=== PATIENT | female | born 1950 | race Caucasian/White ===

== ENCOUNTER 2017-04-17 12:33 | Emergency (ER) | payer MEDICARE, MEDICAID ==
[~2017-04-17] VITALS: Ht 154.9 cm; Wt 68.9 kg
[2017-04-17] MEDS ORDERED: VANCOMYCIN IV 1,000 MG in IV DEXTROSE 5% 250 ML IV ONE (13:00)
[2017-04-17] MEDS ORDERED: VANCOMYCIN IV 200 ML ONE (13:15)
[2017-04-17 13:16] LABS: BASOPHILS % (AUTO) 0.3 % (0.0-2.0); EOSINOPHILS # (AUTO) 0.1 K/uL (0.0-0.7); EOSINOPHILS % (AUTO) 0.8 % (0.0-7.0); HEMATOCRIT 43.4 % (31.2-41.9); HEMOGLOBIN 14.8 g/dL (10.9-14.3); LYMPHOCYTES # (AUTO) 1.9 K/uL (20.0-40.0); LYMPHOCYTES % (AUTO) 20.9 % (20.5-51.5); MEAN CORPUSCULAR HEMOGLOBIN 27.4 uug (24.7-32.8); MEAN CORPUSCULAR HGB CONC 34 g/dL (32.3-35.6); MEAN CORPUSCULAR VOLUME 80.5 fL (75.5-95.3); MONOCYTES # (AUTO) 0.6 K/uL (2.0-10.0); MONOCYTES % (AUTO) 6.5 % (0.0-11.0); NEUTROPHILS # (AUTO) 6.6 K/uL (1.8-8.9); NEUTROPHILS % (AUTO) 71.5 % (38.5-71.5); PLATELET COUNT (AUTO) 259 K/uL (179-408); RED BLOOD CELL COUNT(AUTO) 5.39 MIL/uL (3.63-4.92); WHITE BLOOD COUNT (AUTO) 9.2 K/uL (3.8-11.8)
[2017-04-17 13:31] LABS: BILIRUBIN,DIRECT 0.1 mg/dL (0.0-0.2); BILIRUBIN,TOTAL 0.7 mg/dL (0.2-1.0); CREATININE 0.7 mg/dL (0.6-1.3); POTASSIUM 3.9 mmol/L (3.5-5.1); TOTAL PROTEIN, SERUM 8.7 g/dL (6.4-8.2)
--- NOTE | 2017-04-17 14:10 | NUR ---
[facility] PROVIDED FOR PT PER REQUEST
[2017-04-17] MEDS ORDERED: NEOMY/BACITRA/POLYMYXIN B OINT UD PACKET TP ONE (14:45)
[2017-04-17] MEDS ORDERED: METRONIDAZOLE 500 MG/NS 100ML 100 ML IV ONE (14:51)
[2017-04-17] MEDS ORDERED: METRONIDAZOLE 500 MG/NS 100 ML PIGGYBACK IV ONE (15:00)
--- NOTE | 2017-04-17 15:43 | NUR ---
Patient discharged to home in stable conditon. Written and verbal after care instructions given. Patient verbalizes understanding of instructions. PT WALKS IN STEADY GAIT. PT DENEIS ANY COMPLAIN AT THIS TIME. PT WITH SON
[2017-04-17 15:45] VITALS: BP 108/71
== END 2017-04-17 15:46 | disposition home or self-care (01) ==
LOC: ER 12:33
DX: L03.211 Cellulitis of face (principal)
CPT/HCPCS: 36415; 70486; 80048; 80076; 85025; 96365; 96366; 96367; 99285; A4663; J3370; J3490

== ENCOUNTER 2021-01-03 17:55 | Emergency (ER) | payer MEDICAID, MEDICARE, OTHER ==
--- NOTE | 2021-01-03 20:00 | NUR ---
Patient was called to be triaged but was not present in the waiting deepa.
--- NOTE | 2021-01-03 20:30 | NUR ---
Patient was called to be triaged but was not present. Patient was not triaged or seen by ERMD.
== END 2021-01-03 20:30 | disposition left against medical advice (07) ==
LOC: ER 17:58
DX: Z53.21 Procedure and treatment not carried out due to patient leaving prior to being seen by health care provider (principal)

== ENCOUNTER 2021-01-04 13:47 | Emergency (ER) | payer OTHER ==
[~2021-01-04] VITALS: Ht 152.4 cm; Wt 65.8 kg
--- NOTE | 2021-01-04 13:54 | NUR ---
Pt was triaged and placed back in ER waiting room as the ER is full and there are no ER beds available at this time.
[2021-01-04 15:44] LABS: HEMATOCRIT 41.2 % (31.2-41.9); MEAN CORPUSCULAR HEMOGLOBIN 27.3 uug (24.7-32.8); MEAN CORPUSCULAR VOLUME 81.1 fL (75.5-95.3); PLATELET COUNT (AUTO) 302 K/uL (179-408)
[2021-01-04 15:54] LABS: CREATININE 0.8 mg/dL (0.6-1.3); POTASSIUM 3.9 mmol/L (3.5-5.1)
[2021-01-04 15:57] LABS: BILIRUBIN,DIRECT 0.1 mg/dL (0.0-0.2); BILIRUBIN,TOTAL 0.3 mg/dL (0.2-1.0); TOTAL PROTEIN, SERUM 8.8 g/dL (6.4-8.2)
--- NOTE | 2021-01-04 16:12 | NUR ---
ER MD REDUCED THE PROLAPSED BLADDER BACK INSIDE WITHOUT DIFFICULTY. PT TOLERATED WELL.
[2021-01-04] MEDS: PIPERACILLIN SODIUM/TAZOBACTAM 3.375 G in IV DEXTROSE 5% 50 ML IV ONE (16:34)
[2021-01-04] MEDS ORDERED: PIPERACILLIN/TAZOBACTAM/D5W 50 ML IV ONE (16:43)
--- NOTE | 2021-01-04 20:15 | NUR ---
IV removed. Catheter intact and site benign. Pressure and 4x4 gauze applied to site. No bleeding noted.
--- NOTE | 2021-01-04 20:20 | NUR ---
Patient discharged to home in stable condition. Written and verbal after care instructions given. Patient verbalizes understanding of instructions. Stressed follow up or return to ER for worsening s/s.
[2021-01-04 20:23] VITALS: BP 132/82
== END 2021-01-04 20:24 | disposition home or self-care (01) ==
LOC: ER 13:47
DX: N81.10 Cystocele, unspecified (principal); Z90.710 Acquired absence of both cervix and uterus; Z20.822 Contact with and (suspected) exposure to COVID-19; Z53.29 Procedure and treatment not carried out because of patient's decision for other reasons
CPT/HCPCS: 36415; 71045; 76856; 80048; 80076; 85025; 85730; 86850; 86900; 86901; 87426; 96365; 99284; J2543; A4663

== ENCOUNTER 2022-07-12 15:19 | Emergency (ER) | payer OTHER ==
[~2022-07-12] VITALS: Ht 152.4 cm; Wt 65.8 kg
--- NOTE | 2022-07-12 15:42 | NUR ---
seen and examined by
[2022-07-12 15:53] LABS: HEMATOCRIT 40.6 % (31.2-41.9); MEAN CORPUSCULAR HEMOGLOBIN 26.3 uug (24.7-32.8); MEAN CORPUSCULAR VOLUME 81.1 fL (75.5-95.3); PLATELET COUNT (AUTO) 255 K/uL (179-408)
--- NOTE | 2022-07-12 16:19 | NUR ---
xray in process
[2022-07-12 16:35] LABS: MAGNESIUM 2.1 mg/dL (1.8-2.4); PHOSPHOROUS 4.4 mg/dL (2.5-4.9)
[2022-07-12] MEDS ORDERED: KETOROLAC TROMETHAMINE 15 MG INJ ONE (17:00)
[2022-07-12] MEDS ORDERED: KETOROLAC TROMETHAMINE 15 MG INJ IVP ONE (17:00)
[2022-07-12] MEDS ORDERED: ASPIRIN 81 MG TAB.CHEW PO ONE (17:00)
[2022-07-12] MEDS ORDERED: ASPIRIN 81 MG TAB.CHEW ONE (17:00)
[2022-07-12] MEDS ORDERED: IV NORMAL SALINE 500 ML BAG IV ONE (17:00)
[2022-07-12 17:12] LABS: BILIRUBIN,TOTAL 0.3 mg/dL (0.2-1.0); CREATININE 0.7 mg/dL (0.6-1.3); POTASSIUM 4.9 mmol/L (3.5-5.1); TOTAL PROTEIN, SERUM 8.3 g/dL (6.4-8.2)
--- NOTE | 2022-07-12 18:55 | NUR ---
labs are normal.
[2022-07-12 18:59] VITALS: BP 112/74
== END 2022-07-12 19:01 | disposition home or self-care (01) ==
LOC: ER 15:19
DX: R07.89 Other chest pain (principal); Z90.710 Acquired absence of both cervix and uterus
CPT/HCPCS: 99285; 96374; 71045; 96361; 80053; 83880; 83735; 84100; 85025; 84484 ×2; 36415; 93005; J1885; J7040; A4663

== ENCOUNTER 2024-11-05 15:53 | Emergency (ER) | payer MEDICARE, MEDICAID ==
[~2024-11-05] VITALS: Ht 152.4 cm; Wt 65.8 kg
[2024-11-05] MEDS ORDERED: OXYCODONE/APAP 5-325 MG TABLET ONE (17:00)
[2024-11-05] MEDS: OXYCODONE/APAP 5-325 MG TABLET PO ONE (17:02)
[2024-11-05 17:14] LABS: PLATELET COUNT (AUTO) 230 K/uL (179-408); RED BLOOD CELL COUNT(AUTO) 5.20 MIL/uL (3.63-4.92); RED CELL DISTRIBUTION WIDTH 15.3 % (12.3-17.7); WHITE BLOOD COUNT (AUTO) 6.2 K/uL (3.8-11.8)
[2024-11-05 17:22] LABS: CREATININE 0.5 mg/dL (0.6-1.3); SODIUM SERUM 138 mmol/L (136-145); UREA NITROGEN, BLOOD 15 mg/dL (7-18)
[2024-11-05 17:56] VITALS: BP 126/72
[2024-11-05] MEDS ORDERED: OXYC-128 PO (18:46)
[2024-11-05 19:08] VITALS: BP 120/70; O2SAT 98
== END 2024-11-05 19:08 | disposition home or self-care (01) ==
LOC: ER 15:53
DX: M54.12 Radiculopathy, cervical region (principal); Z90.710 Acquired absence of both cervix and uterus; Z87.448 Personal history of other diseases of urinary system; Z87.2 Personal history of diseases of the skin and subcutaneous tissue
CPT/HCPCS: 36415; 72125; 83735; 85025; A4606; A4663

== ENCOUNTER 2025-02-07 21:09 | Inpatient (IN) | payer MEDICARE, MEDICAID ==
[~2025-02-07] VITALS: Ht 152.4 cm; Wt 65.8 kg
[~2025-02-07 21:09] MED LIST: OXYC-128 PO
[2025-02-07] MEDS: ONDANSETRON ODT 4 MG TAB.RAPDIS SL ONE (23:00)
[2025-02-07] MEDS: HYDROCODONE/APAP 10-325 MG TABLET PO ONE (23:00)
[2025-02-07 23:25] LABS: PLATELET COUNT (AUTO) 214 K/uL (179-408); RED BLOOD CELL COUNT(AUTO) 4.90 MIL/uL (3.63-4.92); RED CELL DISTRIBUTION WIDTH 14.3 % (12.3-17.7); WHITE BLOOD COUNT (AUTO) 6.6 K/uL (3.8-11.8)
[2025-02-07 23:28] LABS: CREATININE 0.6 mg/dL (0.6-1.3); SODIUM SERUM 138 mmol/L (136-145); UREA NITROGEN, BLOOD 12 mg/dL (7-18)
[2025-02-07 23:35] LABS: ASPARTATE AMINOTRANSFERASE 17 U/L (15-37); TOTAL PROTEIN, SERUM 7.7 g/dL (6.4-8.2)
[2025-02-07] MEDS ORDERED: ONDANSETRON ODT 4 MG TAB.RAPDIS ONE (23:56)
[2025-02-07] MEDS ORDERED: HYDROCODONE/APAP 10-325 MG TABLET ONE (23:56)
[2025-02-08] MEDS ORDERED: ENOXAPARIN SODIUM 80 MG/0.8 ML DISP.SYRIN SQ ONE (01:37)
[2025-02-08] MEDS: ENOXAPARIN SODIUM 80 MG/0.8 ML DISP.SYRIN SQ ONE (01:52)
[2025-02-08 04:00] VITALS: BP 135/84
[2025-02-08 08:20] VITALS: BP 127/63; TEMP 97.3; O2SAT 100
[2025-02-08] MEDS ORDERED: ONDANSETRON 4 MG/2 ML VIAL IV PRN (10:00)
[2025-02-08] MEDS ORDERED: ZOLPIDEM 5 MG TABLET PO PRN (10:00)
[2025-02-08] MEDS ORDERED: DOSING PER PHARMACY-ENOXAPARIN XX PRN ×2 (10:00→10:45)
[2025-02-08] MEDS ORDERED: REMEDY ESSENTIAL ZINC PASTE 113 GM TP PRN (10:00)
[2025-02-08 12:00] VITALS: BP 100/59; TEMP 97; O2SAT 100
[2025-02-08] MEDS: ENOXAPARIN SODIUM 80 MG/0.8 ML DISP.SYRIN SQ SCH (14:12)
[2025-02-08] MEDS ORDERED: SITA100T PO (14:12)
[2025-02-08] MEDS ORDERED: ITRA100C3 PO (14:12)
[2025-02-08] MEDS ORDERED: ATOR10TA PO (14:13)
[2025-02-08] MEDS ORDERED: IOHEXOL 300MG/ML 100 ML INFUS..BTL ONE (15:05)
[2025-02-08] MEDS ORDERED: IV NORMAL SALINE 250 ML IV ONE (15:05)
[2025-02-08] MEDS ORDERED: SWABABLE VALVE TRANSFER SET EA MC ONE (15:05)
[2025-02-08 16:00] VITALS: BP 117/65; TEMP 97.2; O2SAT 97
[2025-02-08 19:27] VITALS: BP 121/60; TEMP 98; O2SAT 96
[2025-02-08] MEDS: ATORVASTATIN 10 MG TABLET PO SCH (20:39)
[2025-02-08] MEDS: ACETAMINOPHEN 325 MG TABLET PO PRN (20:40)
[2025-02-09] VITALS (7 sets, daily range): BP systolic 105–139; BP diastolic 51–71; TEMP 97.7–99.2; O2SAT 94–99
[2025-02-09 06:57] LABS: PLATELET COUNT (AUTO) 222 K/uL (179-408); RED BLOOD CELL COUNT(AUTO) 5.09 MIL/uL (3.63-4.92); RED CELL DISTRIBUTION WIDTH 14.6 % (12.3-17.7); WHITE BLOOD COUNT (AUTO) 4.8 K/uL (3.8-11.8)
[2025-02-09 07:16] LABS: CREATININE 0.5 mg/dL (0.6-1.3); SODIUM SERUM 140 mmol/L (136-145); UREA NITROGEN, BLOOD 12 mg/dL (7-18)
[2025-02-09] MEDS ORDERED: IOHEXOL 300MG/ML 100 ML INFUS..BTL ONE (13:35)
[2025-02-09] MEDS ORDERED: IV NORMAL SALINE 250 ML IV ONE (13:35)
[2025-02-09] MEDS ORDERED: SWABABLE VALVE TRANSFER SET EA MC ONE (13:35)
[2025-02-09] MEDS: MAGNESIUM HYDROXIDE 30 ML LIQUID UDC PO PRN (20:45)
[2025-02-10 04:49] VITALS: BP 114/57; TEMP 98.7; O2SAT 95
[2025-02-10 08:00] VITALS: BP 115/69; TEMP 97.5; O2SAT 99
[2025-02-10 08:01] VITALS: BP 114/66; TEMP 97.8; O2SAT 98
[2025-02-10] MEDS ORDERED: ENOX80DI SQ (13:28)
[2025-02-10] MEDS ORDERED: PANT40TA2 PO (13:28)
[2025-02-11 20:09] LABS: *PROTEIN C FUNCTIONAL 93 % (73-180)
== END 2025-02-10 14:50 | disposition home or self-care (01) | DRG 300 ==
LOC: ER 21:31 → TELE3 02-08 07:51
PROVIDERS: ADMIT Student in an Organized Health Care Education/Training Program; ATTEND Student in an Organized Health Care Education/Training Program
DX: I82.432 Acute embolism and thrombosis of left popliteal vein (principal); D68.59 Other primary thrombophilia; E11.51 Type 2 diabetes mellitus with diabetic peripheral angiopathy without gangrene; I70.222 Atherosclerosis of native arteries of extremities with rest pain, left leg; E03.9 Hypothyroidism, unspecified; E78.5 Hyperlipidemia, unspecified; Z90.710 Acquired absence of both cervix and uterus; Z79.84 Long term (current) use of oral hypoglycemic drugs; R26.2 Difficulty in walking, not elsewhere classified; M54.50 Low back pain, unspecified
CPT/HCPCS: 36415; 70030-TC; 71260; 83735; 84100; 85025; 85305; 85613; A4606; A4663; G0378; J1650; J7070; Q0162; Q9967